=== PATIENT | female | born 1990 | race Asian ===

== ENCOUNTER 2016-12-23 00:07 | Emergency (ER) | payer MEDICAID ==
[~2016-12-23] VITALS: Ht 157.5 cm; Wt 58.0 kg
[2016-12-23 00:25] VITALS: Ht 157.5 cm; Wt 58.0 kg
[2016-12-23] MEDS ORDERED: SOD CHLORIDE 0.9% 1,000 ML IV STA (02:14)
[2016-12-23] MEDS ORDERED: ONDANSETRON 4 MG INJ IV STA (02:14)
[2016-12-23] MEDS ORDERED: METR500T PO (02:43)
--- NOTE | 2016-12-23 02:44 | ERD ---
ER Documentation Chief Complaint Date/Time DATE: 12/23/16 TIME: 02:42 Chief Complaint pt reports n/v today HPI 26-year-old female presents to emergency department for complaints of vomiting started today. Patient had multiple episodes of vomiting, does not have any blood in the vomit. Patient does not have any diarrhea or constipation. Patient does not have any fever or chills. Patient currently taking metronidazole for bacterial vaginosis, had brownish vaginal discharge, had exam done, was told to have bacterial vaginosis. Patient denies any abdominal pain at this time. Patient's approximately 14 weeks , 2 para 1 0. Last menstruation 09/09/2016. ROS All systems reviewed and are negative except as per history of present illness. Medications Home Meds Active Scripts Cephalexin* (Keflex*) 500 Mg Capsule, 500 MG PO QID for 7 Days, CAP Prov:HELEN PARK NP 12/23/16 Ondansetron (Ondansetron Odt) 4 Mg Tab.rapdis, 4 MG PO Q8 Y for NAUSEA AND/OR VOMITING, #30 TAB Prov:HELEN PARK NP 12/23/16 Reported Medications Metronidazole* (Flagyl*) Unknown Strength Tablet, PO TID for 7 Days, TAB 12/23/16 Allergies Allergies: Coded Allergies: No Known Allergy (Verified Allergy, Unknown, 10/25/09) PMhx/Soc Medical and Surgical Hx: pt denies Medical Hx, pt denies Surgical Hx Hx Alcohol Use: No Hx Substance Use: No Hx Tobacco Use: No Smoking Status: Never smoker FmHx Family History: No coronary disease, No diabetes, No other Physical Exam Vitals Vital Signs Date Time Temp Pulse Resp B/P Pulse Ox O2 Delivery O2 Flow Rate FiO2 12/23/16 04:43 102 17 105/67 97 Room Air 12/23/16 00:25 99.0 117 18 120/73 97 Physical Exam GENERAL: The patient is well developed and appropriate for usual state of health, in no apparent distress. CHEST: Clear to auscultation bilaterally. There are no rales, wheezes or rhonchi. HEART: Regular rate and rhythm. No murmurs, clicks, rubs or gallops. No S3 or S4. ABDOMEN: Soft, nontender and nondistended. Good bowel sounds. No rebound or guarding. No gross peritonitis. No gross organomegaly or masses. No Jolly sign or McBurney point tenderness. BACK: No midline or flank tenderness. EXTREMITIES: Equal pulses bilaterally. There is no peripheral clubbing, cyanosis or edema. No focal swelling or erythema. Full range of motion. Grossly neurovascularly intact. NEURO: Alert and oriented. Cranial nerves 2-12 intact. Motor strength in all 4 extremities with 5/5 strength. Sensation grossly intact. Normal speech and gait. SKIN: There is no apparent rash or petechia. The skin is warm and dry. HEMATOLOGIC AND LYMPHATIC: There is no evidence of excessive bruising or lymphedema. No gross cervical, axillary, or inguinal lymphadenopathy. Result Diagram: 12/23/16 0240 12/23/16 0240 Results 24 hrs Laboratory Tests Test 12/23/16 02:40 Alanine Aminotransferase (ALT/SGPT) 16IU/L Albumin 4.1g/dl Albumin/Globulin Ratio 1.05 Alkaline Phosphatase 53IU/L Anion Gap 19 Aspartate Amino Transf (AST/SGOT) 23IU/L Basophils # 0.010^3/ul Basophils % 0.1% Beta HCG, Quantitative 66552.0mIU/ml Blood Urea Nitrogen 5mg/dl Calcium Level 9.4mg/dl Carbon Dioxide Level 22mmol/L Chloride Level 103mmol/L Creatinine 0.47mg/dl Direct Bilirubin 0.00mg/dl Eosinophils # 0.110^3/ul Eosinophils % 0.4% Globulin 3.90g/dl Glucose Level 100mg/dl Hematocrit 36.8% Hemoglobin 12.5g/dl Indirect Bilirubin 0.2mg/dl Lymphocytes # 0.510^3/ul Lymphocytes % 3.9% Mean Corpuscular Hemoglobin 30.2pg Mean Corpuscular Hemoglobin Concent 33.9g/dl Mean Corpuscular Volume 89.2fl Mean Platelet Volume 8.5fl Monocytes # 0.310^3/ul Monocytes % 3.0% Neutrophils # 10.810^3/ul Neutrophils % 92.6% Nucleated Red Blood Cells # 0.010^3/ul Nucleated Red Blood Cells % 0.0/100WBC Platelet Count 37818^3/UL Potassium Level 3.7mmol/L Red Blood Count 4.1310^6/ul Red Cell Distribution Width 13.0% Sodium Level 140mmol/L Total Bilirubin 0.2mg/dl Total Protein 8.0g/dl Urine Bacteria MANY Urine Bilirubin NEGATIVE Urine Clarity CLEAR Urine Color YELLOW Urine Glucose NEGATIVE% Urine Hemoglobin NEGATIVE Urine Ketones 3+ Urine Leukocyte Esterase TRACE Urine Microscopic RBC 0-2/HPF Urine Microscopic WBC 2-5/HPF Urine Mucus MANY Urine Nitrite NEGATIVE Urine Specific [place] 1.020 Urine Squamous Epithelial Cells MANY Urine Total Protein NEGATIVE Urine Urobilinogen 0.2 E.U./dL Urine pH 7.0 White Blood Count 11.710^3/ul Current Medications Medications (Trade) Dose Ordered Sig/Tita Route PRN Reason Start Time Stop Time Status Last Admin Dose Admin Sodium Chloride (NS) 1,000 ml @ 1,000 mls/hr Q1H STAT IV 12/23/16 02:14 12/23/16 03:13 DC 12/23/16 02:41 Ondansetron HCl (Zofran Inj) 4 mg ONCE STAT IV 12/23/16 02:14 12/23/16 02:16 DC 12/23/16 02:41 Patient was given Zofran here in the emergency department. After treatment, patient was able to tolerate po fluids here in the emergency department without any vomiting. There is no signs and symptoms of dehydration. Normal saline IV bolus was given here in emergency department for rehydration, patient tolerated IV fluids. PROCEDURE: Obstetrical ultrasound, limited. CLINICAL INDICATION: Pelvic pain. TECHNIQUE: Multiple sonographic images of the pelvis were obtained using transabdominal technique. Images were obtained with baron scale and color Doppler. The images were reviewed on a PACS workstation. COMPARISON: No prior studies are available for comparison. FINDINGS: There is a single living intrauterine gestation with the fetus in a variable presentation. heart tones of 161 beats per minute are identified. The placenta is anterior in location, grade 0. There is normal amniotic fluid volume with the maximum vertical pocket measuring 3.2 cm. There is no evidence of placenta previa or abruption. Measurements were made in order to determine age. The results are as follows: BPD = 2.56 cm HC = 9.29 cm AC = 7.81 cm FL = 1.25 cm. Estimated gestational age of approximately 14 weeks and 1 day. The estimated date of delivery is 06/22/2017. The EFW = 87 +/- 13 grams. Estimated weight percentage equals <3%. IMPRESSION: Single viable intrauterine gestation of approximately 14 weeks and 1 day, with an ultrasound SHEKHAR of 06/22/2017. .Moiz Ko MD, Date Time Electronically viewed and signed by .Moiz Ko MD, MD on 12/23/2016 03:18 .T/ Procedures/MDM Medical Decision Making: Patient's symptoms of vomiting is nonspecific at this time, possible viral. Patient also has urinary tract infection no symptoms of pyelonephritis, patient will be treated for this. No symptoms of sepsis at this time. Patient's is viable at this time. There is low suspicion for abdominal emergencies at this time. Patients abdominal exam is normal at this time. Other radiology exam is not indicated at this time. There is low suspicion for appendicitis, cholecystitis, abdominal aortic aneurysms or peritonitis at this time. There is low suspicion for sepsis. Patient appears well and is hemodynamically stable. Disposition: Home. Condition: Stable Prescription Zofran, Keflex Instructions: Patient is advised to take medications as prescribed. Patient is advised to rest, increase fluid intake and do brat diet for next 1-2 days and progress as tolerated, do good perineal hygiene. Patient is advised that if symptoms are worse, severe abdominal pain, uncontrolled vomiting, high fever, severe flank pain, worst signs and symptoms, to return to the emergency department immediately. Otherwise, patient can follow up with primary care doctor in 5-7 days. Departure Diagnosis: Primary Impression: Vomiting Vomiting type: unspecified Vomiting Intractability: unspecified Nausea presence: unspecified Qualified Code: R11.10 - Vomiting, intractability of vomiting not specified, presence of nausea not specified, unspecified vomiting type Additional Impression: UTI (urinary tract infection) Urinary tract infection type: acute cystitis Hematuria presence: without hematuria Qualified Code: N30.00 - Acute cystitis without hematuria Condition: Stable Patient Instructions: Understanding Urinary Tract Infections (UTIs), Vomiting ( 6Y-Adult) Additional Instructions: Patient is advised to take medications as prescribed. Patient is advised to rest , increase fluid intake and do brat diet for next 1-2 days and progress as tolerated, do good perineal hygiene. Patient is advised that if symptoms are worse, severe abdominal pain, uncontrolled vomiting, high fever, severe flank pain, worst signs and symptoms, to return to the emergency department immediately. Otherwise, patient can follow up with primary care doctor in 5-7 days. HELEN PARK NP Dec 23, 2016 02:44
[2016-12-23 02:59] LABS: BASOPHILS % 0.1 % (0.0-2.0); EOSINOPHILS # 0.1 10^3/ul (0.0-0.5); EOSINOPHILS % 0.4 % (0.0-7.0); HEMATOCRIT 36.8 % (37.0-47.0); HEMOGLOBIN 12.5 g/dl (12.0-16.0); LYMPHOCYTES # 0.5 10^3/ul (0.8-2.9); LYMPHOCYTES % 3.9 % (15.0-51.0); MEAN CORPUSCULAR HEMOGLOBIN 30.2 pg (29.0-33.0); MEAN CORPUSCULAR HGB CONC 33.9 g/dl (32.0-37.0); MEAN CORPUSCULAR VOLUME 89.2 fl (82.0-101.0); MEAN PLATELET VOLUME 8.5 fl (7.4-10.4); MONOCYTE # 0.3 10^3/ul (0.3-0.9); NEUTROPHIL # 10.8 10^3/ul (1.6-7.5); NEUTROPHILS % 92.6 % (39.0-77.0); PLATELET COUNT 231 10^3/UL (140-440); RED BLOOD COUNT 4.13 10^6/ul (4.20-5.40); UNCORRECTED WBC 11.7 10^3/ul (4.8-10.8); WHITE BLOOD COUNT 11.7 10^3/ul (4.8-10.8)
[2016-12-23 03:00] LABS: ADD UMIC YES; URINE BILIRUBIN (Dip) NEGATIVE (NEGATIVE); URINE BLOOD (Dip) NEGATIVE (NEGATIVE); URINE COLOR YELLOW (YELLOW); URINE GLUCOSE (Dip) NEGATIVE (NEGATIVE); URINE KETONES (Dip) 3+ (NEGATIVE); URINE LEUKOCYTE ESTERASE (Dip) TRACE (NEGATIVE); URINE NITRITE (Dip) NEGATIVE (NEGATIVE); URINE TOTAL PROTEIN (Dip) NEGATIVE (NEGATIVE); URINE UROBILINOGEN (Dip) 0.2 E.U./dL (0.1-1.0)
[2016-12-23 03:01] LABS: CONDITION 1; LH ANALYZER COMMENTS 1
[2016-12-23 03:09] LABS: BACTERIA,URINE MANY; MUCUS,URINE MANY; SQUAMOUS EPITHELIAL CELL,UR MANY; URINE RBCS 0-2 /HPF (0)
[2016-12-23 03:11] LABS: ALBUMIN 4.1 g/dl (3.3-4.9)
[2016-12-23 03:12] LABS: POTASSIUM 3.7 mmol/L (3.5-5.1)
[2016-12-23 03:14] LABS: ALBUMIN/GLOBULIN RATIO 1.05; BILIRUBIN,INDIRECT 0.2 mg/dl (0-1.1); BILIRUBIN,TOTAL 0.2 mg/dl (0.2-1.3); CREATININE 0.47 mg/dl (0.44-1.00)
[2016-12-23 03:15] LABS: CALCIUM 9.4 mg/dl (8.4-10.2)
--- NOTE | 2016-12-23 03:18 | RADRPT ---
PROCEDURE: Obstetrical ultrasound, limited. CLINICAL INDICATION: Pelvic pain. TECHNIQUE: Multiple sonographic images of the pelvis were obtained using transabdominal technique . Images were obtained with baron scale and color Doppler. The images were reviewed on a PACS works tation. COMPARISON: No prior studies are available for comparison. FINDINGS: There is a single living intrauterine gestation with the fetus in a variable presentation. he art tones of 161 beats per minute are identified. The placenta is anterior in location, grade 0. T here is normal amniotic fluid volume with the maximum vertical pocket measuring 3.2 cm. There is no evidence of placenta previa or abruption. Measurements were made in order to determine age. The results are as follows: BPD =2.56 cm HC =9.29 cm AC =7.81 cm FL =1.25 cm. Estimated gestational age of approximately 14 weeks and 1 day. The estimated date of delivery is 06/22/2017. The EFW = 87 +/- 13 grams. Estimated weight percentage equals <3%. IMPRESSION: Single viable intrauterine gestation of approximately 14 weeks and 1 day, with an ultrasound SHEKHAR of 06/22/2017. .Moiz Ko MD, MD Date Time Electronically viewed and signed by .Moiz Ko MD, MD on 12/23/2016 03:18 .T/
[2016-12-23] MEDS ORDERED: ONDA4TAB14 PO (04:25)
[2016-12-23] MEDS ORDERED: CEPH-443 PO (04:25)
[2016-12-23 04:43] VITALS: BP 105/67; PULSE 102; RESP 17
== END 2016-12-23 04:49 | disposition home or self-care (01) ==
LOC: FTE 00:07
DX: O21.9 Vomiting of pregnancy, unspecified (principal); O23.42 Unspecified infection of urinary tract in pregnancy, second trimester; R10.2 Pelvic and perineal pain; Z3A.14 14 weeks gestation of pregnancy
CPT/HCPCS: 76805; 80053; 81001; 84702; 85025; 86900; 86901; J2405; J7030; 36415; 81003; 96374

== ENCOUNTER 2017-01-08 14:49 | Emergency (ER) | payer MEDICAID ==
[~2017-01-08] VITALS: Wt 71.0 kg
[~2017-01-08 14:49] MED LIST: CEPH-443 PO; METR500T PO; ONDA4TAB14 PO
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
[2017-01-08] MEDS ORDERED: ACETAMINOPHEN 325 MG TAB PO ONE (16:30)
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
[2017-01-08 19:05] VITALS: BP 127/86; PULSE 100; RESP 18; TEMP 98.5
== END 2017-01-08 19:17 | disposition home or self-care (01) ==
LOC: FTE 14:49
DX: O9A.212 Injury, poisoning and certain other consequences of external causes complicating pregnancy, second trimester (principal); S39.91XA Unspecified injury of abdomen, initial encounter; S29.002A Unspecified injury of muscle and tendon of back wall of thorax, initial encounter; V43.61XA Car passenger injured in collision with sport utility vehicle in traffic accident, initial encounter; Z3A.17 17 weeks gestation of pregnancy
CPT/HCPCS: 76805; Z7502; Z7610

== ENCOUNTER 2017-04-05 02:30 | Outpatient (CLI) | payer MEDICAID ==
[~2017-04-05] VITALS: Ht 157.5 cm; Wt 64.2 kg
[2017-04-05 02:46] VITALS: Ht 157.5 cm; Wt 64.2 kg
[2017-04-05 02:47] VITALS: BP 122/80; PULSE 100; RESP 18
[2017-04-05] MEDS ORDERED: PREN-93 PO (02:49)
[2017-04-05] MEDS ORDERED: DEXTROSE 5%-LR 1,000 ML IV SCH (02:56)
[2017-04-05] MEDS ORDERED: ONDANSETRON 4 MG INJ IV STA (02:56)
--- NOTE | 2017-04-05 03:18 | RADRPT ---
PROCEDURE: Biophysical profile. CLINICAL INDICATION: Pelvic pain. TECHNIQUE: Multiple sonographic images of the pelvis were obtained with transabdominal technique. COMPARISON: 01/08/2017. FINDINGS: There is a single living intrauterine gestation with the fetus in a vertex position. The placenta i s anterior in location, grade 1. heart tones of 144 beats per minute are identified. There is normal amniotic fluid volume with an HORACE of 12.6 cm. breathing movements = 2 Gross body movements = 2 tone = 2 Qualitative AFV = 2 IMPRESSION: Biophysical profile 8 out of 8. .Moiz Ko MD, Date Time Electronically viewed and signed by .Moiz Ko MD, on 04/05/2017 03:18 .T/
--- NOTE | 2017-04-05 03:47 | PN ---
Date/Time of Note Date/Time of Note DATE: 04/05/17 TIME: 03:43 OB Subjective Subjective Subjective 26 Year-old with SIUP at 29 wks presents with a chief complaint of vomiting and diarrhea for one day. She has been receiving her care with Dr. Pete. She states good movement. She denies shortness of breath, chest pain, and abdominal pain between contractions, headache, visual changes, vaginal bleeding or LOF. OB Objective Objective Objective General: Patient appears well, alert and oriented, NAD, appropriate mood and affect ABD: gravid, soft, non-tender. Back: No CVA tenderness (B/L) LE: No clubbing, cyanosis, edema, thigh or calf tenderness bilaterally FHT: 135 bpm , moderate variability with acceleration, no deceleration-category I Contractions: None OB Assessment/Plan Other plan: 26 Year-old with SIUP at 29 wks with possible viral gastroenteritis. She received IVF and zofran, felt better. - FHR: No sign of metabolic acidosis- Category I - Continuous EFM, toco - Contractions: None. - Reactive NST. BPP: 8/8 - Rx for zofran ODT given- PRN - Symptoms and sign of labor, preeclampsia, kick count discussed with patient, she voiced understanding. All of her questions answered. - Patient was discharged home in stable condition with the appropriate discharge instructions provided. I would like patient to have close follow-up with her primary physician or outpatient clinic in 1-2 days or return to the ER for worsening symptoms or any other urgent concerns. ANAHY MORILLO April 05, 2017 03:47
--- NOTE | 2017-04-05 06:40 | TRIAGE ---
OB Triage Datetime Report Generated by CPN: 04/05/2017 06:39 Datetime: 04/05/2017 05:35 Stage of : OB Triage Datetime: 04/05/2017 05:30 Labor Evaluation Frequency: 0 Monitor Mode: External Heart Rate FHR Baseline Rate: 145 Monitor Mode: External US FHR Baseline Changes: No Baseline Change Variability: Moderate 6-25 bpm Accelerations: 15X15 Decelerations: None Category: Category I Datetime: 04/05/2017 04:40 Stage of : OB Triage Datetime: 04/05/2017 04:25 Labor Evaluation Frequency: 0 Monitor Mode: External Heart Rate FHR Baseline Rate: 145 Monitor Mode: External US FHR Baseline Changes: No Baseline Change Variability: Moderate 6-25 bpm Accelerations: 15X15 Decelerations: None Category: Category I Datetime: 04/05/2017 03:30 Labor Evaluation Frequency: 0 Monitor Mode: External Heart Rate FHR Baseline Rate: 145 Monitor Mode: External US FHR Baseline Changes: No Baseline Change Variability: Moderate 6-25 bpm Accelerations: 15X15 Decelerations: None Category: Category I Datetime: 04/05/2017 02:54 Stage of : OB Triage Datetime: 04/05/2017 02:50 EGA: 29.5 Datetime: 04/05/2017 02:39 Stage of : OB Triage Assessment Type: Triage Maternal Assessment Level of Consciousness: Fully Conscious DTR's/Clonus: DTRs 2+; No Clonus Headache: Denies Blurred Vision: No Respiratory Effort: Unlabored; Regular Rhythm; Equal Expansion Breath Sounds, Left: Clear and Equal Breath Sounds, Right: Clear and Equal Nausea/Vomiting: Denies RUQ Epigastric Pain: Denies Lower Extremities Edema: None Degree: None Upper Extremities Edema: None Degree: None Facial Edema: None Temperature Route: Oral Fall Risk Assessment History of Falling: (0) No Secondary Diagnosis: (0) No Ambulatory Aid: (0) Bedrest/Nurse Assist IV Therapy: (0) No Gait: (0) Normal/Bedrest/Immobile Mental Status: (0) Oriented to Own Ability Fall Score: 0 Fall Risk Score Definition: No Risk: No action required Monitor Mode: External Monitor Mode: External US Pain Assessment Pain Scale: 4 Pain Presence: Intermittent Pain Type: Cramping Pain Location: Abdomen Datetime: 04/05/2017 02:09 Time of Arrival: 04/05/2017 02:25 Arrived By: Wheelchair Arrived From: Home Chief Complaint: VOMITING Movement: Present Rupture of Membranes: Denies Vaginal Bleeding: None Vaginal Discharge: Denies Recent Sexual Intercouse: Denies Abdominal Trauma: Not Applicable Patient Complaints: None Time Provider Notified: 04/05/2017 02:54 Provider Notified: HADADIAN Initial Plan: CALL , ТАТЬЯНА
== END 2017-04-05 05:35 | disposition home or self-care (01) ==
LOC: L-D 02:30 → OBT 02:30
PROVIDERS: ATTEND Obstetrics & Gynecology
DX: O21.2 Late vomiting of pregnancy (principal); O26.893 Other specified pregnancy related conditions, third trimester; R19.7 Diarrhea, unspecified; Z3A.29 29 weeks gestation of pregnancy
CPT/HCPCS: 36415; 76818; 87086; J2405; J7121; Z7500; G0463

== ENCOUNTER 2017-05-16 11:14 | Inpatient (IN) | payer MEDICAID, OTHER ==
[~2017-05-16] VITALS: Ht 157.5 cm; Wt 65.8 kg
[~2017-05-16 11:14] MED LIST changes: -CEPH-443 PO; -METR500T PO; -ONDA4TAB14 PO; +PREN-93 PO
[2017-05-16 11:35] VITALS: BP 117/70; PULSE 109
[2017-05-16 11:36] VITALS: Ht 157.5 cm; Wt 65.8 kg
[2017-05-16] MEDS ORDERED: TERBUTALINE 1 MG/ML INJ SC ONE ×2 (12:30→15:00)
[2017-05-16 12:46] LABS: ADD SCAN DIFF NO
[2017-05-16 12:51] LABS: BASOPHILS % 0.3 % (0.0-2.0); EOSINOPHILS # 0.1 10^3/ul (0.0-0.5); EOSINOPHILS % 0.8 % (0.0-7.0); HEMOGLOBIN 10.1 g/dl (12.0-16.0); LYMPHOCYTES # 1.1 10^3/ul (0.8-2.9); LYMPHOCYTES % 14.9 % (15.0-51.0); MEAN CORPUSCULAR HEMOGLOBIN 30.8 pg (29.0-33.0); MEAN CORPUSCULAR HGB CONC 33.7 g/dl (32.0-37.0); MEAN CORPUSCULAR VOLUME 91.5 fl (82.0-101.0); MEAN PLATELET VOLUME 10.7 fl (7.4-10.4); MONOCYTE # 0.5 10^3/ul (0.3-0.9); MONOCYTES % 7.2 % (0.0-11.0); NEUTROPHIL # 5.5 10^3/ul (1.6-7.5); NEUTROPHILS % 76.4 % (39.0-77.0); PLATELET COUNT 173 10^3/UL (140-415); RED BLOOD COUNT 3.28 10^6/ul (4.20-5.40); RED CELL DISTRIBUTION WIDTH 13.3 % (11.5-14.5); WHITE BLOOD COUNT 7.3 10^3/ul (4.8-10.8)
[2017-05-16 13:39] LABS: ADD UMIC NO; UR ASCORBIC ACID NEGATIVE (NEGATIVE); UR BILIRUBIN (Dip) NEGATIVE (NEGATIVE); UR BLOOD (Dip) NEGATIVE (NEGATIVE); UR CLARITY CLEAR (CLEAR); UR COLOR YELLOW (YELLOW); UR GLUCOSE (Dip) NEGATIVE (NEGATIVE); UR KETONES (Dip) 1+ mg/dL (NEGATIVE); UR LEUKOCYTE ESTERASE (Dip) NEGATIVE Leu/ul (NEGATIVE); UR NITRITE (Dip) NEGATIVE (NEGATIVE); UR SPECIFIC GRAVITY (Dip) 1.014 (1.003-1.030); UR TOTAL PROTEIN (Dip) NEGATIVE (NEGATIVE); UR UROBILINOGEN (Dip) NEGATIVE (NEGATIVE)
[2017-05-16] MEDS ORDERED: BETAMET NA PHOS/AC(6 MG/ML) 5ML INJ ONE (14:58)
[2017-05-16] MEDS ORDERED: BETAMET NA PHOS/AC(6 MG/ML) 5ML INJ IM ONE (15:00)
[2017-05-16] MEDS: LACTATED RINGER'S 1,000 ML IV SCH ×3 (15:58→20:00)
[2017-05-16] MEDS ORDERED: NIFEdipine 10 MG CAP ONE (18:25)
[2017-05-16] MEDS: NIFEdipine 10 MG CAP PO SCH ×2 (18:28→23:59)
[2017-05-16] MEDS ORDERED: MEPERIDINE 50 MG INJ IV ONE (18:30)
[2017-05-17] MEDS: LACTATED RINGER'S 1,000 ML IV SCH ×2 (02:11→11:01)
[2017-05-17] MEDS: NIFEdipine 10 MG CAP PO SCH ×3 (06:14→17:56)
[2017-05-17] MEDS ORDERED: BETAMET NA PHOS/AC(6 MG/ML) 5ML INJ IM ONE (15:00)
--- NOTE | 2017-05-17 19:56 | HP ---
Date/Time of Note Date/Time of Note DATE: 05/17/17 TIME: 19:51 OB - History Hx of Present Free Text/Dictation admitted C/O persistent UC started Am of the admission Last Menstrual Period: Sep 09, 2016 Estimated Due Date: Jun 16, 2017 : 2 Para: 1 Care: Good Care Ultrasounds: Normal mid trimester US Obstetrical Complications: None, Gestational Diabetes Medical Complications: None Past Family/Social History * Past Medical, Surgical, Family and Obstetric Histories reviewed from chart. Blood Type: O+ Rubella: immune RPR/VDRL: Negative GBS Status: Unknown HBsAG: Negative OB Admission Exam Vital Signs Vital Signs Vital Signs Date Time Temp Pulse Resp B/P Pulse Ox O2 Delivery O2 Flow Rate FiO2 05/16/17 11:35 98.2 109 117/70 Room Air Physical Exam HEENT: WNL Heart: Rhythm Normal Lungs: Clear, Equal Abdomen: WNL Extremities: Normal Reflexes: Normal Cervical Dilatation: Fingertip Effacement: 25% Station: -3 Membranes: Intact Heart Rate: 140's Accelerations: Accelerations Present Decelerations: No Decelerations Varibility: Marked Contractions on Admission: < 5 Minutes Apart Date/Time Contractions Began: 05/16/2017 080 AM Frequency of Contractions: q 5 Duration: >60 seconds Intensity: Moderate Last 72 hours Lab Results CBC & BMP 05/16/17 12:34 OB Assessment/Plan Reason for admission: labor Other Assessment: 35 + weeks gestation contractions Other plan: admitted for tocolysis of contractions SG JAIME MD May 17, 2017 19:56
--- NOTE | 2017-05-17 20:00 | DS ---
Date/Time of Note Date/Time of Note DATE: 05/17/17 TIME: 19:56 Obstetrical Discharge Record Final Diagnosis Final Diagnosis: not delivered Other Final Diagnosis uterine contractions Complications Labor (treated with terbutaline and nifedipine ) Tocolytics: Other (nifedipine and SQ terbutaline) Condition on Discharge Physical Assessment Last Vitals: see nurses notes Voiding: Yes Bowel Movement: Yes Breast: Soft, non-tender, Filling Fundus: Other (gravid) Abdomen and Incision: soft and Episiotomy: NA Calf Tenderness: No Patient Condition: Good (patient's contractiobs were subsided ) SG JAIME MD May 17, 2017 20:00
--- NOTE | 2017-05-17 20:04 | PD.PPDC ---
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
[2017-05-17] MEDS ORDERED: NIFE10CA19 PO (20:05)
== END 2017-05-17 20:45 | disposition home or self-care (01) | DRG 778 ==
LOC: OBT 11:14 → L-D 11:16 → OBG 11:30 → OBT 18:10
PROVIDERS: ADMIT Obstetrics & Gynecology; ATTEND Obstetrics & Gynecology
DX: O60.03 Preterm labor without delivery, third trimester (principal); Z3A.35 35 weeks gestation of pregnancy
CPT/HCPCS: 36415; 81003; 85025; 87086; 96360; 96361; 96372; G0463; J0702; J2175; J3105; J7120

== ENCOUNTER 2017-06-12 16:00 | Inpatient (IN) | payer OTHER ==
[~2017-06-12] VITALS: Ht 157.5 cm; Wt 67.2 kg
[~2017-06-12 16:00] MED LIST changes: +NIFE10CA19 PO
[2017-06-12 16:35] VITALS: BP 125/75; PULSE 100; RESP 18
--- NOTE | 2017-06-12 18:51 | RADRPT ---
PROCEDURE: Obstetrical ultrasound. CLINICAL INDICATION: , evaluation. Pelvic pain. TECHNIQUE: Third trimester obstetrical ultrasound. Transabdominal sonographic images of the pelvi s are obtained. COMPARISON: 06/01/2017 FINDINGS: Single intrauterine gestation. There is a cephalic presentation. Measurements were made in order to determine age. The results are as follows: BPD = 9.65 cm 39 weeks 3 day(s) HC = 34.22 cm 39 weeks 3 day(s) AC = 35.57 cm 39 weeks 3 day(s) FL = 7.73 cm 39 weeks 4 day(s) Heart rate = 161 beats per minute The placenta is anterior. There is no evidence for an abruption or placenta previa. Ovaries are not visualized. IMPRESSION: Single intrauterine gestation of approximately 39 weeks 3 days by ultrasound criteria. [place] estimated weight = 3801 g; 73 percentile for gestational age of 39 weeks 3 days. RPTAT: AADD .Anibal Pete MD, MD Date Time Electronically viewed and signed by .Anibal Pete MD, on 06/12/2017 18:51 .B/
[2017-06-12] MEDS ORDERED: LACTATED RINGER'S 1,000 ML IV PRN (21:00)
[2017-06-12] MEDS ORDERED: METHYLERGONOVINE 0.2 MG INJ IM PRN (21:00)
[2017-06-12] MEDS ORDERED: IBUPROFEN 600 MG TAB PO PRN (21:00)
[2017-06-12] MEDS ORDERED: OXYTOCIN 30 UNITS/LR 500 ML IV PRN (21:00)
[2017-06-12] MEDS ORDERED: LIDOCAINE 1% (MPF) 30 ML INJ INJ PRN (21:00)
[2017-06-12] MEDS ORDERED: CARBOPROST 250 MCG INJ IM PRN (21:00)
[2017-06-12] MEDS ORDERED: MISOPROSTOL 200 MCG TAB PR PRN (21:00)
[2017-06-12] MEDS ORDERED: BUTORPHANOL 2 MG INJ IV PRN ×2 (21:00)
[2017-06-12] MEDS ORDERED: ACETAMINOPHEN/CODEINE #3 TAB PO PRN (21:00)
[2017-06-12] MEDS ORDERED: OXYTOCIN 30 UNITS/LR 500 ML IV SCH ×2 (21:00)
[2017-06-12] MEDS ORDERED: AMPICILLIN 2 GM/NS (PMX) 100 ML IVPB ONE (22:00)
[2017-06-12] MEDS: LACTATED RINGER'S 1,000 ML IV SCH (23:32)
[2017-06-12 23:39] LABS: BASOPHILS % 0.4 % (0.0-2.0); EOSINOPHILS # 0.1 10^3/ul (0.0-0.5); EOSINOPHILS % 1.8 % (0.0-7.0); HEMATOCRIT 31.3 % (37.0-47.0); HEMOGLOBIN 10.4 g/dl (12.0-16.0); LYMPHOCYTES # 1.4 10^3/ul (0.8-2.9); LYMPHOCYTES % 21.1 % (15.0-51.0); MEAN CORPUSCULAR HEMOGLOBIN 30.2 pg (29.0-33.0); MEAN CORPUSCULAR HGB CONC 33.2 g/dl (32.0-37.0); MEAN PLATELET VOLUME 10.6 fl (7.4-10.4); MONOCYTE # 0.5 10^3/ul (0.3-0.9); NEUTROPHIL # 4.6 10^3/ul (1.6-7.5); NEUTROPHILS % 69.3 % (39.0-77.0); PLATELET COUNT 173 10^3/UL (140-415); RED BLOOD COUNT 3.44 10^6/ul (4.20-5.40); RED CELL DISTRIBUTION WIDTH 13.9 % (11.5-14.5); WHITE BLOOD COUNT 6.7 10^3/ul (4.8-10.8)
[2017-06-12 23:55] LABS: INR 0.96; PROTIME 12.8 Sec (12.2-14.2)
[2017-06-13] MEDS ORDERED: DINOPROSTONE 10 MG VAG SUPP VAG ONE
[2017-06-13] MEDS: AMPICILLIN 1 GM/NS (PMX) 50 ML IVPB SCH ×2 (03:32→07:41)
[2017-06-13] MEDS: LACTATED RINGER'S 1,000 ML IV SCH ×3 (07:52→20:54)
--- NOTE | 2017-06-13 17:52 | HP ---
Date/Time of Note Date/Time of Note DATE: 06/13/17 TIME: 17:50 OB - History Hx of Present Free Text/Dictation 26 y/o female admitted for induction of the labor Chief Complaint: suprapubic pain Last Menstrual Period: Sep 09, 2016 Estimated Due Date: Jun 16, 2017 : 2 Para: 1 Care: Good Care Ultrasounds: Normal mid trimester US Obstetrical Complications: None Medical Complications: None Past Family/Social History * Past Medical, Surgical, Family and Obstetric Histories reviewed from chart. Blood Type: O+ Rubella: immune RPR/VDRL: Negative GBS Status: Negative HBsAG: Negative OB Admission Exam Vital Signs Vital Signs Vital Signs Date Time Temp Pulse Resp B/P Pulse Ox O2 Delivery O2 Flow Rate FiO2 06/12/17 16:35 98.2 100 18 125/75 97 Room Air Physical Exam HEENT: WNL Heart: Rhythm Normal Lungs: Clear, Equal Abdomen: WNL Extremities: Normal Reflexes: Normal Cervical Dilatation: None Effacement: 0% Station: -3 Membranes: Intact Heart Rate: 140's Accelerations: Accelerations Present Decelerations: No Decelerations Varibility: Moderate Contractions on Admission: >10 Minutes Apart Last 72 hours Lab Results CBC & BMP 06/12/17 23:20 OB Assessment/Plan Reason for admission: induction of labor Other Assessment: term gestation Induction Method: per Misoprostol Protocol SG JAIME MD Jun 13, 2017 17:52
--- NOTE | 2017-06-13 17:54 | PN ---
Date/Time of Note Date/Time of Note DATE: 06/13/17 TIME: 17:52 OB Subjective Subjective Subjective No major complaints OB Objective Objective Objective VSS P/E: Normal on EFM UC seen q 4 min HEENT: WNL Heart: Rhythm Normal Lungs: Clear, Equal Abdomen: WNL Extremities: Normal Reflexes: Normal Cervical Dilatation: 2cm Effacement: 50% Station: -3 Membranes: Intact Heart Rate: 130's Accelerations: Accelerations Present Decelerations: No Decelerations Varibility: Moderate Contractions on Admission: < 5 Minutes Apart OB Assessment/Plan Reason for admission: induction of labor Other Assessment: term gestation Other plan: start on Pitocin augmentation SG JAIME MD Jun 13, 2017 17:54
[2017-06-13] MEDS: OXYTOCIN 30 UNITS/LR 500 ML IV SCH (20:11)
[2017-06-13] MEDS ORDERED: OXYTOCIN 30 UNITS/LR 500 ML IV SCH (20:30)
[2017-06-13] MEDS: NA PHOSPHATE/BIPHOS 133 ML ENEMA PR SCH ×2 (23:01→23:29)
[2017-06-14] MEDS: LACTATED RINGER'S 1,000 ML IV SCH ×4 (01:00→20:31)
[2017-06-14] MEDS: OXYTOCIN 30 UNITS/LR 500 ML IV SCH (10:52)
--- NOTE | 2017-06-14 15:32 | PN ---
Date/Time of Note Date/Time of Note DATE: 06/14/17 TIME: 15:28 OB Subjective Subjective Subjective C/O UCs OB Objective Objective Objective VSS P/E: normal Cx: %70 2cm -2 AROM: Clear OB Assessment/Plan Reason for admission: induction of labor Other Assessment: term gestation Other plan: continue with Pitocin augmentation SG JAIME MD Jun 14, 2017 15:32
[2017-06-14] MEDS ORDERED: MINERAL OIL LIGHT 10 ML VIAL TOP PRN (20:30)
[2017-06-14] MEDS ORDERED: KETOROLAC 30 MG INJ IV PRN (21:30)
[2017-06-14] MEDS ORDERED: DIPHENHYDRAMINE 50 MG INJ IV PRN (21:30)
[2017-06-14] MEDS ORDERED: NALOXONE (0.4 MG/ML) INJ IV PRN (21:30)
[2017-06-14] MEDS ORDERED: ONDANSETRON 4 MG INJ IV PRN (21:30)
[2017-06-14] MEDS ORDERED: HYDROmorphONE 1 MG/ML SYG IV PRN ×2 (21:30)
[2017-06-14] MEDS: FENTAnyl 2MCG/ML-ROPIV 0.2% 100 ML BAG EPI SCH (23:57)
[2017-06-15] MEDS ORDERED: AMPICILLIN 2 GM/NS (PMX) 100 ML IVPB ONE (00:30)
[2017-06-15] MEDS: LACTATED RINGER'S 1,000 ML IV SCH ×2 (01:31→07:09)
[2017-06-15] MEDS: FENTAnyl 2MCG/ML-ROPIV 0.2% 100 ML BAG EPI SCH (04:06)
[2017-06-15] MEDS ORDERED: AMPICILLIN 1 GM/NS (PMX) 50 ML IVPB SCH (05:00)
--- NOTE | 2017-06-15 09:37 | LDN ---
Date/Time of Note Date/Time of Note DATE: 06/15/17 TIME: 09:32 Delivery Summary Called to attend natacha due to unavailability of attending that managed intrapartum care. Patient has been pushing for several hours. noted to have vulvar edema C/C + 2 Continued to push. Anticipate watch closely for post Hemorrhage due to prolonged intrapartum course' Placenta Delivered: Spontaneously Meconium: none Episiotomy: No Indication for episiotomy N/A Perineal laceration: 0 Laceration repair: N/A Anesthesia type: Epidural Estimated blood loss: 300 Sponge & Needle done & correct: Yes All needle counts correct: Yes Any foreign bodies felt in the: No Problems: Delivery Information Sex Sex: female Apgars 1 Minute: 9 5 Minute: 9 Suctioning Nose & mouth suctioned at ben: No Delee suction performed: Yes Umbilical Cord Umbilical cord with: 3 Vessels Cord presentations: no nuchal cord Cord Blood was obtained: Yes Mother & Baby Disposition Disposition Fundus was monitored after delivery, initially was firm, but became gradually buggy. Pitocin running, Massage done, 600 Mcg Cytotec plaed intrarectally Assurance made about firmness of fundus priot to leave the bed side Hemostasis was complete BERNABE LORD MD Jun 15, 2017 09:37
[2017-06-15] MEDS ORDERED: ONDANSETRON 4 MG INJ IV PRN (10:00)
[2017-06-15] MEDS ORDERED: DIPHENHYDRAMINE 25 MG CAP PO PRN (10:00)
[2017-06-15] MEDS ORDERED: OXYTOCIN 30 UNITS/LR 500 ML IV PRN (10:00)
[2017-06-15] MEDS ORDERED: ZOLPIDEM 5 MG TAB PO PRN (10:00)
[2017-06-15] MEDS ORDERED: ACETAMINOPHEN 325 MG TAB PO PRN (10:00)
[2017-06-15] MEDS ORDERED: LANOLIN 7 GM TUBE TOP PRN (10:00)
[2017-06-15] MEDS ORDERED: CARBOPROST 250 MCG INJ IM PRN (10:00)
[2017-06-15] MEDS ORDERED: MISOPROSTOL 200 MCG TAB PR PRN (10:00)
[2017-06-15] MEDS: LACTATED RINGER'S 1,000 ML IV* SCH ×2 (11:38→17:13)
[2017-06-15 12:09] VITALS: BP 126/84; PULSE 81; RESP 18
[2017-06-15] MEDS: IBUPROFEN 600 MG TAB PO SCH ×3 (12:19→23:48)
[2017-06-15] MEDS: WITCH HAZEL/GLYCERIN PAD PR PRN (12:20)
[2017-06-15] MEDS: CEPHALEXIN 500 MG CAP PO SCH ×3 (14:30→23:48)
[2017-06-15 16:00] VITALS: BP 112/68; PULSE 65; RESP 18
[2017-06-15] MEDS ORDERED: NA PHOSPHATE/BIPHOS 133 ML ENEMA PR ONE (18:01)
[2017-06-15] MEDS ORDERED: FENTAnyl 2MCG/ML-ROPIV 0.2% 100 ML ONE (18:02)
[2017-06-15 20:30] VITALS: BP 109/68; PULSE 76; RESP 18
[2017-06-15] MEDS: SENNA/DOCUSATE NA (8.6MG/50MG) TAB PO SCH (21:27)
[2017-06-16] MEDS ORDERED: HYDROCODONE/APAP (5/325) TAB PO PRN ×2 (01:30)
[2017-06-16] MEDS: CEPHALEXIN 500 MG CAP PO SCH ×3 (06:09→17:32)
[2017-06-16] MEDS: IBUPROFEN 600 MG TAB PO SCH ×3 (06:09→17:32)
[2017-06-16 08:00] VITALS: BP 107/61; RESP 18
[2017-06-16] MEDS: SENNA/DOCUSATE NA (8.6MG/50MG) TAB PO SCH ×2 (09:12→21:26)
[2017-06-16 10:30] LABS: HEMATOCRIT 28.2 % (37.0-47.0); HEMOGLOBIN 9.4 g/dl (12.0-16.0)
[2017-06-16] MEDS: WITCH HAZEL/GLYCERIN PAD PR PRN (10:39)
--- NOTE | 2017-06-16 14:27 | DS ---
Date/Time of Note Date/Time of Note home next day DATE: 06/16/17 TIME: 14:25 Obstetrical Discharge Record Final Diagnosis Final Diagnosis: Term delivered Other Final Diagnosis S/P vaginal delivery Vaginal Delivery Obstetrical Delivery: Spontaneous Complications Augmentation: Yes Induction: Yes Condition on Discharge Physical Assessment Last Vitals: see nurses notes Voiding: Yes Bowel Movement: Yes Breast: Soft, non-tender, Filling Fundus: Firm Abdomen and Incision: soft BS + Episiotomy: NA Calf Tenderness: No Patient Condition: Good SG JAIME MD Jun 16, 2017 14:27
--- NOTE | 2017-06-16 14:28 | PD.PPDC ---
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
[2017-06-16] MEDS ORDERED: IBUP-1542 PO (14:29)
[2017-06-16 17:10] VITALS: BP 112/60; PULSE 68; RESP 18
[2017-06-16 20:00] VITALS: BP 122/78; PULSE 80; RESP 18
[2017-06-17] MEDS: IBUPROFEN 600 MG TAB PO SCH ×3 (00:18→12:21)
[2017-06-17] MEDS: CEPHALEXIN 500 MG CAP PO SCH ×3 (00:18→12:21)
[2017-06-17 04:15] VITALS: BP 115/79; PULSE 79; RESP 18
[2017-06-17 07:59] LABS: BASOPHILS % 0.4 % (0.0-2.0); EOSINOPHILS # 0.2 10^3/ul (0.0-0.5); EOSINOPHILS % 2.5 % (0.0-7.0); HEMOGLOBIN 9.5 g/dl (12.0-16.0); LYMPHOCYTES # 1.7 10^3/ul (0.8-2.9); LYMPHOCYTES % 21.5 % (15.0-51.0); MEAN CORPUSCULAR HEMOGLOBIN 29.7 pg (29.0-33.0); MEAN CORPUSCULAR HGB CONC 32.8 g/dl (32.0-37.0); MEAN CORPUSCULAR VOLUME 90.6 fl (82.0-101.0); MEAN PLATELET VOLUME 10.7 fl (7.4-10.4); MONOCYTE # 0.5 10^3/ul (0.3-0.9); MONOCYTES % 6.2 % (0.0-11.0); NEUTROPHIL # 5.5 10^3/ul (1.6-7.5); PLATELET COUNT 175 10^3/UL (140-415); RED CELL DISTRIBUTION WIDTH 13.7 % (11.5-14.5)
[2017-06-17 08:15] VITALS: BP 122/76; PULSE 85; RESP 16
[2017-06-17] MEDS ORDERED: DIPHTH/TET/ACEL PERTUSS (ADULT) 0.5 ML VIAL IM* ONE (09:00)
[2017-06-17] MEDS ORDERED: VARICELLA VACCINE LIVE/PF 1,350 UNIT/0.5 ML ML SC* ONE (09:00)
[2017-06-17] MEDS ORDERED: MEASLES,MUMPS,RUBELLA VACCINE INJ SC* ONE (09:00)
[2017-06-17] MEDS: SENNA/DOCUSATE NA (8.6MG/50MG) TAB PO SCH (09:10)
[2017-06-17] MEDS: WITCH HAZEL/GLYCERIN PAD PR PRN (12:24)
[2017-06-17 15:30] VITALS: BP 115/76; PULSE 66; RESP 14
== END 2017-06-17 15:40 | disposition home or self-care (01) | DRG 775 ==
LOC: L-D 16:00 → OBT 16:00 → L-D 20:35 → PP1 06-15 11:56
PROVIDERS: ADMIT Obstetrics & Gynecology; ATTEND Obstetrics & Gynecology
PROC: 10E0XZZ Delivery of Products of Conception, External Approach (ICD-10-PCS; principal; 2017-06-15)
DX: O80 Encounter for full-term uncomplicated delivery (principal); Z37.0 Single live birth; Z3A.39 39 weeks gestation of pregnancy
CPT/HCPCS: 62319; 76815; 85014; 85018; 85025; 85610; 85730; 86592; 86900; 86901; 87340; 90715; 90716; G0463; J0290; J2405; J2590; J3010; J7120

== ENCOUNTER 2018-05-12 09:49 | Emergency (ER) | END 2018-05-12 13:16 | disposition home or self-care (01) ==

== ENCOUNTER 2018-05-12 14:39 | Emergency (ER) | END 2018-05-12 19:14 | disposition home or self-care (01) ==

== ENCOUNTER 2018-05-26 13:22 | Inpatient (IN) | END 2018-06-04 15:40 | disposition home or self-care (01) | DRG 417 ==